=== PATIENT | male | born 1950 | race Caucasian/White ===

== ENCOUNTER 2023-01-12 06:25 | Emergency (ER) | payer MEDICARE ==
[2023-01-12 06:30] VITALS: TEMP 98
[2023-01-12] MEDS ORDERED: BACITRACIN OINT 1 EACH PACKET TOPICAL ONE (06:56)
--- NOTE | 2023-01-12 06:58 | ED ---
General Adult HPI - General Chief complaint: Wound/Laceration Stated complaint: Left Ankle Laceration Time Seen by Provider: 01/12/23 06:33 Source: patient, RN notes reviewed Mode of arrival: ambulatory Limitations: no limitations - History of Present Illness Initial comments: 72-year-old male presents emergency Department chief complaint of left leg inj ury. Patient states yesterday he was [place] the [place] football off when a ball washer fell striking his leg. Patient states that he has noted laceration he states he wrapped it up and noticed a little bit of blood this morning so he presents to the emergency room. Patient is up-to-date on his tetanus. Patient offers no complaints. - Related Data Allergies Allergy/AdvReac Type Severity Reaction Status Date / Time No Known Allergies Allergy Verified 01/12/23 06:30 Review of Systems ROS Statement: Those systems with pertinent positive or pertinent negative responses have been documented in the HPI. ROS Other: All systems not noted in ROS Statement are negative. Past Medical History Past Medical History: No Reported History Additional Past Surgical History / Comment(s): skin cancer removal Smoking Status: Never smoker Past Alcohol Use History: None Reported Past Drug Use History: None Reported General Exam General appearance: alert, in no apparent distress Head exam: Present: atraumatic, normocephalic, normal inspection Respiratory exam: Present: normal lung sounds bilaterally. Absent: respiratory distress, wheezes, rales, rhonchi, stridor Cardiovascular Exam: Present: regular rate, normal rhythm, normal heart sounds. Absent: systolic murmur, diastolic murmur, rubs, gallop, clicks Extremities exam: Present: other (Left lower leg anterior worrell there is 7 cm superficial laceration, skin tear no active bleeding neurovascular intact) Course Vital Signs 01/12/23 06:28 Temperature 98 F Pulse Rate 60 Respiratory 19 Rate Blood Pressure 140/75 O2 Sat by Pulse 98 Oximetry Medical Decision Making - Medical Decision Making Was pt. sent in by a medical professional or institution (, PA, BIODIESEL PLANT SUPERINTENDENT, urgent care, hospital, or shelter...) When possible be specific @ -No Did you speak to anyone other than the patient for history (EMS, parent, family, police, friend...)? What history was obtained from this source @ -No Did you review nursing and triage notes (agree or disagree)? Why? @ -I reviewed and agree with nursing and triage notes Were old charts reviewed (outside hosp., previous admission, EMS record, old EKG , old radiological studies, urgent care reports/EKG's, shelter records)? Report findings @ -No old charts were reviewed Differential Diagnosis (chest pain, altered mental status, abdominal pain women, abdominal pain men, vaginal bleeding, weakness, fever, dyspnea, syncope, headache, dizziness, GI bleed, back pain, seizure, CVA, palpatations, mental health, musculoskeletal)? @ -Laceration, skin tear EKG interpreted by me (3pts min.). @ -None X-rays interpreted by me (1pt min.). @ -None done CT interpreted by me (1pt min.). @ -None done U/S interpreted by me (1pt. min.). @ -None done What testing was considered but not performed or refused? (CT, X-rays, U/S, labs)? Why? @ -None What meds were considered but not given or refused? Why? @ -None Did you discuss the management of the patient with other professionals (professionals i.e. , PA, BIODIESEL PLANT SUPERINTENDENT, lab, RT, psych nurse, social worker delinquency prevention, business lawyer, teacher, v/stol landing signal officer, manager rn case)? Give summary @ -No Was smoking cessation discussed for >3mins.? @ -No Was critical care preformed (if so, how long)? @ -No Were there social determinants of health that impacted care today? How? (Homelessness, low income, unemployed, alcoholism, drug addiction, transportation, low edu. Level, literacy, decrease access to med. care, group home, rehab)? @ -No Was there de-escalation of care discussed even if they declined (Discuss DNR or withdrawal of care, Hospice)? DNR status @ -No What co-morbidities impacted this encounter? (DM, HTN, Smoking, COPD, CAD, Canc er, CVA, ARF, Chemo, Hep., AIDS, mental health diagnosis, sleep apnea, morbid obesity)? @ -None Was patient admitted / discharged? Hospital course, mention meds given and route, prescriptions, significant lab abnormalities, going to OR and other pertinent info. @ -Discharged patient has superficial laceration, skin tear was thoroughly cleaned, bacitracin applied will be discharged in stable condition patient was updated on tetanus. Undiagnosed new problem with uncertain prognosis? @ -No Drug Therapy requiring intensive monitoring for toxicity (Heparin, Nitro, Insulin, Cardizem)? @ -No Were any procedures done? @ -No Diagnosis/symptom? @ -Leg laceration, skin tear Acute, or Chronic, or Acute on Chronic? @ -Acute Uncomplicated (without systemic symptoms) or Complicated (systemic symptoms)? @ -Uncomplicated Side effects of treatment? @ -No Exacerbation, Progression, or Severe Exacerbation? @ -No Poses a threat to life or bodily function? How? (Chest pain, USA, [place], pneumonia, PE, COPD, DKA, ARF, appy, cholecystitis, CVA, Diverticulitis, Homicidal, Suicidal, threat to staff... and all critical care pts) @ -No Disposition Clinical Impression: Laceration of left leg, Skin tear Disposition: HOME SELF-CARE Condition: Stable Instructions (If sedation given, give patient instructions): Acute Wound Care (ED) Additional Instructions: Please return to the Emergency Department if symptoms worsen or any other concerns. Is patient prescribed a controlled substance at d/c from ED?: No Referrals: Nonstaff,Physician [Primary Care Provider] - 1-2 days Time of Disposition: 06:57
[2023-01-12 07:20] VITALS: BP 134/76; PULSE 62; RESP 16
== END 2023-01-12 07:24 | disposition home or self-care (01) ==
LOC: EC 06:25
DX: S81.812A Laceration without foreign body, left lower leg, initial encounter (principal); W20.8XXA Other cause of strike by thrown, projected or falling object, initial encounter; Y92.39 Other specified sports and athletic area as the place of occurrence of the external cause; Y93.61 Activity, american tackle football
CPT/HCPCS: 99282

== ENCOUNTER 2023-04-06 02:51 | Inpatient (IN) | payer MEDICARE ==
[2023-04-06 04:24] LABS: Basophils % (A) 0 %; Eosinophils # (A) 0.1 k/uL (0-0.7); Eosinophils % (A) 0 %; HCT 43.3 % (39.0-53.0); HGB 14.5 gm/dL (13.0-17.5); Lymphocytes # (A) 1.3 k/uL (1.0-4.8); Lymphocytes % (A) 11 %; MCH 31.2 pg (25.0-35.0); MCHC 33.5 g/dL (31.0-37.0); MCV 93.1 fL (80.0-100.0); Mean Platelet Volume 8.5; Monocytes % (A) 9 %; Neutrophils % (A) 79 %; Platelet Count 149 k/uL (150-450); RBC 4.65 m/uL (4.30-5.90); RDW 12.9 % (11.5-15.5); WBC 11.4 k/uL (3.8-10.6)
[2023-04-06] MEDS ORDERED: MORPHINE SULFATE 4 MG/ML SYRINGE IV STA (04:25)
[2023-04-06 04:32] LABS: ALT 25 U/L (4-49); AST 26 U/L (17-59); African American GFR (CKD) >90 (>60 ml/min/1.73 sqM); Albumin 4.1 g/dL (3.5-5.0); Alkaline Phosphatase 97 U/L (38-126); Amylase 50 U/L (30-110); Anion Gap 9 mmol/L; Blood Urea Nitrogen 15 mg/dL (9-20); Carbon Dioxide 27 mmol/L (22-30); Chloride 100 mmol/L (98-107); Glucose 98 mg/dL (74-99); Lipase 53 U/L (23-300); Non-African American GFR(CKD) 84 (>60 ml/min/1.73 sqM); Potassium 4.4 mmol/L (3.5-5.1); Sodium 136 mmol/L (137-145); Total Bilirubin 0.9 mg/dL (0.2-1.3)
--- NOTE | 2023-04-06 07:00 | CT ---
EXAMINATION TYPE: CT abdomen pelvis w con CT DLP: 788.4 mGycm, Automated exposure control for dose reduction was used. DATE OF EXAM: 04/06/2023 5:17 AM COMPARISON: none CLINICAL INDICATION:Male, 73 years old with history of RLQ pain; TECHNIQUE: Standard CT of the abdomen and pelvis following the administration of 100 cc of Isovue 3 00 IV contrast material. Coronal and sagittal reformats were performed. FINDINGS: LOWER CHEST: Posterior dependent subsegmental atelectasis is noted. ABDOMEN LIVER: Unremarkable GALLBLADDER AND BILE DUCTS: Unremarkable. PANCREAS: Unremarkable. SPLEEN: Unremarkable. ADRENAL GLANDS: Unremarkable. KIDNEYS AND URETERS: No evidence of hydronephrosis or renal calculus. The kidneys enhance symmetrical ly. Contrast is demonstrated within both collecting systems on the delayed phase. PELVIS BLADDER: Under distended but grossly unremarkable. REPRODUCTIVE: Coarse calcifications of the prostate gland are identified. ABDOMEN & PELVIS STOMACH AND BOWEL: Stomach and duodenum are unremarkable. No evidence of bowel obstruction. Dilated a ppendix measuring up to 9 mm with surrounding fat stranding and appendicolith at its tip measuring 5 mm. PERITONEUM: No evidence of pneumoperitoneum or free fluid. VASCULATURE: No evidence of aortic aneurysm. MUSCULOSKELETAL: No acute osseous abnormalities. Mild osteoarthritic changes of both hips. Degenerati ve changes of both SI joints. Mild multilevel degenerative disc disease of the visualized thoracolumb ar spine. LYMPH NODES: No gross evidence for lymphadenopathy. SOFT TISSUE/ABDOMINAL WALL: Unremarkable IMPRESSION: Uncomplicated acute appendicitis. Findings called to and discussed with Dr. Chou at 6:58 AM on 04/06/2023.
--- NOTE | 2023-04-06 07:09 | ED ---
Abdominal Pain HPI - General Source: RN notes reviewed, old records reviewed <Jorge Bearden - Last Filed: 04/06/23 08:21> - General Source: patient Mode of arrival: ambulatory Limitations: no limitations - History of Present Illness MD Complaint: abdominal pain -: hour(s) Location: RLQ Radiation: none Migration to: no migration Severity: moderate Quality: sharp Consistency: constant Improves With: nothing Worsens With: nothing Context: possible food poisoning Associated Symptoms: nausea, constipation <Zackary Chou - Last Filed: 04/06/23 08:35> - General Chief Complaint: Abdominal Pain Stated Complaint: Right side abdominal pain Time Seen by Provider: 04/06/23 03:50 - History of Present Illness Initial Comments: 's patient is 73-year-old man who complains of having right lower quadrant pain. He states that he has come on over the course of tonight. Patient states that its an aching pain. It does get worse with taking deep breath. He also states she may have a degree of constipation associated. He notes that prior to today he had been having some loose bowel movements for day and he also had possible fever yesterday. He thought he may have case of food poisoning but when the pain worsened over the course of tonight he felt he should be seen. (Zackary Chou) - Related Data Allergies Allergy/AdvReac Type Severity Reaction Status Date / Time No Known Allergies Allergy Verified 01/12/23 06:30 Review of Systems ROS Other: All systems not noted in ROS Statement are negative. <Jorge Bearden - Last Filed: 04/06/23 08:21> ROS Other: All systems not noted in ROS Statement are negative. Constitutional: Reports: fever. Denies: chills Respiratory: Denies: cough, dyspnea Cardiovascular: Denies: chest pain, palpitations Gastrointestinal: Reports: abdominal pain, diarrhea. Denies: nausea, vomiting Genitourinary: Denies: dysuria, frequency, hematuria Musculoskeletal: Denies: back pain Skin: Denies: rash Neurological: Denies: headache, weakness, numbness <Zackary Chou - Last Filed: 04/06/23 08:35> ROS Statement: Those systems with pertinent positive or pertinent negative responses have been documented in the HPI. Past Medical History Past Medical History: No Reported History Additional Past Surgical History / Comment(s): skin cancer removal Past Psychological History: No Psychological Hx Reported Smoking Status: Never smoker Past Alcohol Use History: None Reported Past Drug Use History: None Reported <Zackary Chou - Last Filed: 04/06/23 08:35> General Exam Limitations: no limitations General appearance: alert, in no apparent distress Head exam: Present: atraumatic, normocephalic Eye exam: Present: normal appearance. Absent: scleral icterus, conjunctival injection ENT exam: Present: normal oropharynx Neck exam: Present: normal inspection Respiratory exam: Present: normal lung sounds bilaterally. Absent: respiratory distress, wheezes, rales, rhonchi, stridor Cardiovascular Exam: Present: regular rate, normal rhythm, normal heart sounds. Absent: systolic murmur, diastolic murmur, rubs, gallop GI/Abdominal exam: Present: soft. Absent: distended, tenderness, guarding, rebound, rigid, mass, pulsatile mass, hernia Extremities exam: Present: normal inspection, normal capillary refill. Absent: pedal edema, calf tenderness Back exam: Present: normal inspection. Absent: CVA tenderness (R), CVA tenderness (L) Neurological exam: Present: alert Skin exam: Present: warm, dry, intact, normal color. Absent: rash <Zackary Chou - Last Filed: 04/06/23 08:35> Course Vital Signs 04/06/23 04/06/23 02:52 06:00 Temperature 98.2 F Pulse Rate 83 72 Respiratory 16 16 Rate Blood Pressure 142/80 120/60 O2 Sat by Pulse 97 96 Oximetry Medical Decision Making - Lab Data Result diagrams: 04/06/23 04:09 04/06/23 04:09 <Jorge Bearden - Last Filed: 04/06/23 08:21> - Lab Data Result diagrams: 04/06/23 04:09 04/06/23 04:09 <Zackary Chou - Last Filed: 04/06/23 08:35> - Medical Decision Making Was patient admitted / discharged? Hospital course, mention meds given and route, prescriptions, significant lab abnormalities, going to OR and other pert inent info. @ -Patient's CAT scan showed appendicitis. I spoke with Dr. Scott and Dr. Scott wanted to admit the patient was taken the patient to the OR later today. Undiagnosed new problem with uncertain prognosis? @ -No Drug Therapy requiring intensive monitoring for toxicity (Heparin, Nitro, Insulin, Cardizem)? @ -No Were any procedures done? @ -No Diagnosis/symptom? @ -Acute appendicitis Acute, or Chronic, or Acute on Chronic? @ -Acute Uncomplicated (without systemic symptoms) or Complicated (systemic symptoms)? @ -Complicated Side effects of treatment? @ -No Exacerbation, Progression, or Severe Exacerbation? @ -No Poses a threat to life or bodily function? How? (Chest pain, [place], [place], pneumonia, PE, COPD, DKA, ARF, appy, cholecystitis, CVA, Diverticulitis, Homicidal, Suicidal, threat to staff... and all critical care pts) @ -No (Jorge Bearden) Was pt. sent in by a medical professional or institution (, PA, HOUSE MOVER SUPERVISOR, urgent care, hospital, or [place] health [place] facility...) When possible be specific @ -[No] Did you speak to anyone other than the patient for history (EMS, parent, family, police, friend...)? What history was obtained from this source @ -[No] Did you review nursing and triage notes (agree or disagree)? Why? @ -[I reviewed and agree with nursing and triage notes] Were old charts reviewed (outside hosp., previous admission, EMS record, old EKG, old radiological studies, urgent care reports/EKG's, [place] health [facility] facility records)? Report findings @ -[No old charts were reviewed] Differential Diagnosis (chest pain, altered mental status, abdominal pain women, abdominal pain men, vaginal bleeding, weakness, fever, dyspnea, syncope, headache, dizziness, GI bleed, back pain, seizure, CVA, palpatations, mental health, musculoskeletal)? @ -[Differential Abdominal Pain Men: Appendicitis, cholecystitis, diverticulosis, ischemic bowel, pancreatitis, hepatitis, UTI, gastroenteritis, AAA, incarcerated hernia, bowel obstruction, constipation, inflammatory bowel, hepatitis, peptic ulcer disease, splenic infarction, perforated viscus, testicular torsion, this is not meant to be an all-inclusive list EKG interpreted by me (3pts min.). @ -[As above] X-rays interpreted by me (1pt min.). @ -[None done] CT interpreted by me (1pt min.). @ -[I interpreted as above U/S interpreted by me (1pt. min.). @ -[None done] What testing was considered but not performed or refused? (CT, X-rays, U/S, labs)? Why? @ -[None] What meds were considered but not given or refused? Why? @ -[None] Did you discuss the management of the patient with other professionals (prof mesa i.e. , PA, HOUSE MOVER SUPERVISOR, lab, RT, psych nurse, social media assistant, marine underwriter, teacher, customs officer, leather case finisher)? Give summary @ -[No] Was smoking cessation discussed for >3mins.? @ -[No] Was critical care preformed (if so, how long)? @ -[No] Were there social determinants of health that impacted care today? How? (Homelessness, low income, unemployed, alcoholism, drug addiction, trans portation, low edu. Level, literacy, decrease access to med. care, residential, rehab)? @ -[No] Was there de-escalation of care discussed even if they declined (Discuss DNR or withdrawal of care, Hospice)? DNR status @ -[No] What co-morbidities impacted this encounter? (DM, HTN, Smoking, COPD, CAD, Cancer, CVA, ARF, Chemo, Hep., AIDS, mental health diagnosis, sleep apnea, morbid obesity)? @ -[None] Was patient admitted / discharged? Hospital course, mention meds given and route, prescriptions, significant lab abnormalities, going to OR and other pertinent info. @ -[The patient is pending computed tomography scan at time of shift change (Zackary Chou) - Lab Data Lab Results 04/06/23 04/06/23 04/06/23 Range/Units 04:09 04:09 04:09 WBC 11.4 H (3.8-10.6) k/uL RBC 4.65 (4.30-5.90) m/uL Hgb 14.5 (13.0-17.5) gm/dL Hct 43.3 (39.0-53.0) % MCV 93.1 (80.0-100.0) fL MCH 31.2 (25.0-35.0) pg MCHC 33.5 (31.0-37.0) g/dL RDW 12.9 (11.5-15.5) % Plt Count 149 L (150-450) k/uL MPV 8.5 Neutrophils % 79 % Lymphocytes % 11 % Monocytes % 9 % Eosinophils % 0 % Basophils % 0 % Neutrophils # 9.0 H (1.3-7.7) k/uL Lymphocytes # 1.3 (1.0-4.8) k/uL Monocytes # 1.0 (0-1.0) k/uL Eosinophils # 0.1 (0-0.7) k/uL Basophils # 0.0 (0-0.2) k/uL Sodium 136 L (137-145) mmol/L Potassium 4.4 (3.5-5.1) mmol/L Chloride 100 (98-107) mmol/L Carbon Dioxide 27 (22-30) mmol/L Anion Gap 9 mmol/L BUN 15 (9-20) mg/dL Creatinine 0.90 (0.66-1.25) mg/dL Est GFR (CKD-EPI)AfAm >90 (>60 ml/min/1.73 sqM) Est GFR (CKD-EPI)NonAf 84 (>60 ml/min/1.73 sqM) Glucose 98 (74-99) mg/dL Plasma Lactic Acid Velasquez 0.8 (0.7-2.0) mmol/L Calcium 9.0 (8.4-10.2) mg/dL Total Bilirubin 0.9 (0.2-1.3) mg/dL AST 26 (17-59) U/L ALT 25 (4-49) U/L Alkaline Phosphatase 97 (38-126) U/L Total Protein 7.0 (6.3-8.2) g/dL Albumin 4.1 (3.5-5.0) g/dL Amylase 50 (30-110) U/L Lipase 53 (23-300) U/L Coronavirus (PCR) (Not Detectd) 04/06/23 Range/Units 04:09 WBC (3.8-10.6) k/uL RBC (4.30-5.90) m/uL Hgb (13.0-17.5) gm/dL Hct (39.0-53.0) % MCV (80.0-100.0) fL MCH (25.0-35.0) pg MCHC (31.0-37.0) g/dL RDW (11.5-15.5) % Plt Count (150-450) k/uL MPV Neutrophils % % Lymphocytes % % Monocytes % % Eosinophils % % Basophils % % Neutrophils # (1.3-7.7) k/uL Lymphocytes # (1.0-4.8) k/uL Monocytes # (0-1.0) k/uL Eosinophils # (0-0.7) k/uL Basophils # (0-0.2) k/uL Sodium (137-145) mmol/L Potassium (3.5-5.1) mmol/L Chloride (98-107) mmol/L Carbon Dioxide (22-30) mmol/L Anion Gap mmol/L BUN (9-20) mg/dL Creatinine (0.66-1.25) mg/dL Est GFR (CKD-EPI)AfAm (>60 ml/min/1.73 sqM) Est GFR (CKD-EPI)NonAf (>60 ml/min/1.73 sqM) Glucose (74-99) mg/dL Plasma Lactic Acid Velasquez (0.7-2.0) mmol/L Calcium (8.4-10.2) mg/dL Total Bilirubin (0.2-1.3) mg/dL AST (17-59) U/L ALT (4-49) U/L Alkaline Phosphatase (38-126) U/L Total Protein (6.3-8.2) g/dL Albumin (3.5-5.0) g/dL Amylase (30-110) U/L Lipase (23-300) U/L Coronavirus (PCR) Not Detected (Not Detectd) Disposition Time of Disposition: 08:28 <Jorge Bearden - Last Filed: 04/06/23 08:21> <Zackary Chou - Last Filed: 04/06/23 08:35> Clinical Impression: Acute appendicitis Disposition: ADMITTED IP TO THIS HOSP Referrals: None,Stated [Primary Care Provider] - 1-2 days
[2023-04-06] MEDS ORDERED: SODIUM CHLORIDE 0.9% 1,000 ML IV ONE (08:28)
[2023-04-06] MEDS ORDERED: MORPHINE SULFATE 4 MG/ML SYRINGE IVP STA (10:08)
[2023-04-06 10:36] LABS: Appearance,Urine Clear (Clear); Bilirubin,Urine Negative (Negative); Blood,Urine Negative (Negative); Color,Urine Light Yellow; Glucose,Urine (UA) Negative (Negative); Ketones,Urine 2+ (Negative); Leukocyte Esterase,Urine Negative (Negative); Nitrite,Urine Negative (Negative); PH, Urine 6.5 (5.0-8.0); Protein,Urine Negative (Negative); Urobilinogen,Urine <2.0 mg/dL (<2.0)
[2023-04-06 10:54] LABS: Specific Gravity,Urine >1.050 (1.001-1.035)
[2023-04-06] MEDS ORDERED: AMPICILLIN-SULBACTAM 3 GM in SODIUM CHLORIDE 0.9% 100 ML IVPB STA (12:45)
[2023-04-06] MEDS ORDERED: ONDANSETRON 4 MG/2 ML VIAL IVP PRN (12:47)
--- NOTE | 2023-04-06 12:50 | P.GSHP ---
History of Present Illness H&P Date: 04/06/23 CHIEF COMPLAINT: Right lower quadrant abdominal pain with appendicitis for over 2 days. HISTORY OF PRESENT ILLNESS: The patient is a previously healthy 73-year-old male who presents with 2 day history of epigastric to right lower quadrant abdominal pain with new fever that started yesterday. He routinely sees a primary care provider in [place]. He is generally healthy and does not take any medications. Additional diagnostic studies demonstrated appendicitis. He denies any previous surgeries. PAST MEDICAL HISTORY: See list and reviewed PAST SURGICAL HISTORY: See list and reviewed CURRENT MEDICATIONS: See list and reviewed ALLERGIES: See list and reviewed SOCIAL HISTORY: See list and reviewed FAMILY HISTORY: See list and reviewed REVIEW OF ORGAN SYSTEMS: CONSTITUTIONAL: Present fever, no chills. Denies recent weight loss. HEENT: Denies any trouble with vision, hearing or nosebleeds. No difficulty swallowing. LYMPHATIC: The patient denies any lumps and bumps around the neck. ENDOCRINE: Denies any thyroid disorders. Denies any blood sugar glucose intolerance. RESPIRATORY: Denies shortness of breath including chronic cough. CARDIOVASCULAR: Denies history of chest pain with exertion. GASTROINTESTINAL: Denies regurgitation of bile at night as well as intermittent nausea. No blood in stools. GENITOURINARY: Denies any blood in urine or increased urinary frequency. MUSCULOSKELETAL: Denies current joint arthritis. NEUROLOGIC: Denies any numbness or tingling along the distal extremities. No seizure disorders or headaches. PSYCHIATRIC: Denies any depression or suicidal ideation. HEMATOLOGIC: Denies any abnormal bleeding or bruising. PHYSICAL EXAMINATION: VITALS: Reviewed. GENERAL: Well-developed and in no acute distress. Pleasant. HEENT: No sclera icterus. Extraocular movements grossly intact. Moist buccal mucosa. Head is atraumatic, normocephalic. Hears conversational speech. No nasal drainage. NECK: Supple without lymphadenopathy. No JV distention. CHEST: Non-labored respirations and equal bilateral excursions. CARDIOVASCULAR: Regular rate and rhythm. Palpable 2+ radial pulses. ABDOMEN: Soft, tender at the right lower quadrant without guarding. MUSCULOSKELETAL: No clubbing, cyanosis or edema. NEUROLOGIC: No focal or lateralizing signs. PSYCH: Appropriate affect. Alert and oriented to person, place and time. SKIN: Well perfused. Good skin turgor. LABS: Reviewed. White blood cell count elevated over 11,000. STUDIES: CT of the abdomen and pelvis reviewed with findings consistent with appendicitis. ASSESSMENT: 1. Right lower quadrant pain. 2. Appendicitis 3. Leukocytosis. PLAN: 1. I have discussed benefits and risks of robotic appendectomy. 2. Bilateral SCDs. 3. Antibiotics intravenous to address leukocytosis 4. Will get EKG prior to surgery. Thank you very much for allowing me to participate in the care of your patient. Addendum: EKG demonstrates multiple abnormalities. I discussed with patient any prior cardiac assessment or stress test which he denies. Hold surgery due to moderate EKG changes with septal infarct. Will get cardiac risk assessment and ECHO. In the interim, treat with antibiotics. Patient is increased cardiac risk for a cardiac event pending additional cardiac assessment. Past Medical History Past Medical History: No Reported History Additional Past Surgical History / Comment(s): skin cancer removal Past Psychological History: No Psychological Hx Reported Smoking Status: Never smoker Past Alcohol Use History: None Reported Past Drug Use History: None Reported - Past Family History Father Family Medical History: Cancer Mother Family Medical History: No Reported History Medications and Allergies Home Medications Medication Instructions Recorded Confirmed Type No Known Home Medications 04/06/23 04/06/23 History Allergies Allergy/AdvReac Type Severity Reaction Status Date / Time No Known Allergies Allergy Verified 04/06/23 10:55 Surgical - Exam Vital Signs Temp Pulse Resp BP Pulse Ox 98.2 F 83 16 142/80 97 04/06/23 02:52 04/06/23 02:52 04/06/23 02:52 04/06/23 02:52 04/06/23 02:52 Results - Labs 04/09/23 06:26 04/06/23 04:09 Abnormal Lab Results - Last 24 Hours (Table) 04/06/23 04/06/23 04/06/23 Range/Units 04:09 04:09 04:09 WBC 11.4 H (3.8-10.6) k/uL Plt Count 149 L (150-450) k/uL Neutrophils # 9.0 H (1.3-7.7) k/uL Sodium 136 L (137-145) mmol/L Ur Specific [place] >1.050 H (1.001-1.035) Urine Ketones 2+ H (Negative) Diabetes panel 04/06/23 Range/Units 04:09 Sodium 136 L (137-145) mmol/L Potassium 4.4 (3.5-5.1) mmol/L Chloride 100 (98-107) mmol/L Carbon Dioxide 27 (22-30) mmol/L BUN 15 (9-20) mg/dL Creatinine 0.90 (0.66-1.25) mg/dL Glucose 98 (74-99) mg/dL Calcium 9.0 (8.4-10.2) mg/dL AST 26 (17-59) U/L ALT 25 (4-49) U/L Alkaline Phosphatase 97 (38-126) U/L Total Protein 7.0 (6.3-8.2) g/dL Albumin 4.1 (3.5-5.0) g/dL Calcium panel 04/06/23 Range/Units 04:09 Calcium 9.0 (8.4-10.2) mg/dL Albumin 4.1 (3.5-5.0) g/dL Pituitary panel 04/06/23 Range/Units 04:09 Sodium 136 L (137-145) mmol/L Potassium 4.4 (3.5-5.1) mmol/L Chloride 100 (98-107) mmol/L Carbon Dioxide 27 (22-30) mmol/L BUN 15 (9-20) mg/dL Creatinine 0.90 (0.66-1.25) mg/dL Glucose 98 (74-99) mg/dL Calcium 9.0 (8.4-10.2) mg/dL Adrenal panel 04/06/23 Range/Units 04:09 Sodium 136 L (137-145) mmol/L Potassium 4.4 (3.5-5.1) mmol/L Chloride 100 (98-107) mmol/L Carbon Dioxide 27 (22-30) mmol/L BUN 15 (9-20) mg/dL Creatinine 0.90 (0.66-1.25) mg/dL Glucose 98 (74-99) mg/dL Calcium 9.0 (8.4-10.2) mg/dL Total Bilirubin 0.9 (0.2-1.3) mg/dL AST 26 (17-59) U/L ALT 25 (4-49) U/L Alkaline Phosphatase 97 (38-126) U/L Total Protein 7.0 (6.3-8.2) g/dL Albumin 4.1 (3.5-5.0) g/dL
[2023-04-06] MEDS: KETOROLAC 15 MG/ML 1 ML VIAL IVP SCH ×2 (14:38→18:19)
[2023-04-06] MEDS: metroNIDAZOLE-NS PMX 500 MG in SALINE 1 100ML.BAG IVPB SCH ×2 (14:39→18:47)
[2023-04-06] MEDS: ACETAMINOPHEN IV (For NPO) 1,000 MG in EMPTY BAG 1 BAG IVPB SCH ×2 (14:39→18:18)
[2023-04-06] MEDS: AMPICILLIN-SULBACTAM 3 GM in SODIUM CHLORIDE 0.9% 100 ML IVPB SCH (20:05)
[2023-04-07] MEDS: ACETAMINOPHEN IV (For NPO) 1,000 MG in EMPTY BAG 1 BAG IVPB SCH ×3 (00:04→23:49)
[2023-04-07] MEDS: KETOROLAC 15 MG/ML 1 ML VIAL IVP SCH ×4 (00:29→17:20)
[2023-04-07] MEDS: metroNIDAZOLE-NS PMX 500 MG in SALINE 1 100ML.BAG IVPB SCH ×5 (00:30→23:52)
[2023-04-07] MEDS: AMPICILLIN-SULBACTAM 3 GM in SODIUM CHLORIDE 0.9% 100 ML IVPB SCH ×3 (04:54→22:44)
[2023-04-07] MEDS ORDERED: SODIUM CHLORIDE 0.9% 2,000 ML IV ONE (06:43)
[2023-04-07] MEDS ORDERED: HEPARIN SODIUM,PORCINE/PF 5,000 UNIT/0.5 ML SYRINGE SQ PRN (07:00)
--- NOTE | 2023-04-07 10:21 | CA ---
Transthoracic Echo Report Name: Esteban Neil Age: 73 Gender: M : 1950 Exam Date: 04/07/2023 09:04 Exam Location: [facility] Ht (in): 70 Wt (lb): 170 Ordering Physician: Suzanne Solorio MD Attending/Referring Phys: Lyndsey HALLMAN Director Of Therapy Services Latesha Meija RDCS Procedure CPT: Indications: Abnormal EKG for septal infarct Cardiac Hx: Technical Quality: Good Contrast 1: Total Dose (mL): Contrast 2: Total Dose (mL): MEASUREMENTS (Male / Female) Normal Values 2D ECHO LV Diastolic Diameter PLAX 4.7 cm 4.2 - 5.9 / 3.9 - 5.3 cm LV Systolic Diameter PLAX 2.9 cm IVS Diastolic Thickness 1.0 cm 0.6 - 1.0 / 0.6 - 0.9 cm LVPW Diastolic Thickness 0.9 cm 0.6 - 1.0 / 0.6 - 0.9 cm LV Relative Wall Thickness 0.4 RV Internal Dim ED PLAX 2.9 cm LA Systolic Diameter LX 3.9 cm 3.0 - 4.0 / 2.7 - 3.8 cm LV Diastolic Volume MOD 4C 57.2 cm??? LV Systolic Volume MOD 4C 21.9 cm??? LV Ejection Fraction MOD 4C 61.8 % LV Cardiac Index MOD 4C 848.7 cm???/min???m??? LV Diastolic Length 4C 7.9 cm LV Systolic Length 4C 6.1 cm LV Diastolic Volume MOD 2C 67.0 cm??? LV Systolic Volume MOD 2C 27.4 cm??? LV Ejection Fraction MOD 2C 59.1 % LV Cardiac Index MOD 2C 950.8 cm???/min???m??? LV Diastolic Length 2C 8.1 cm LV Systolic Length 2C 7.4 cm LA Volume 60.9 cm??? 18 - 58 / 22 - 52 cm??? LA Volume Index 31.1 cm???/m??? 16 - 28 cm???/m??? M-MODE Aortic Root Diameter MM 2.9 cm MV E Point Septal Separation 0.2 cm AV Cusp Separation MM 2.2 cm DOPPLER AV Peak Velocity 152.5 cm/s AV Peak Gradient 9.3 mmHg MV Area PHT 3.4 cm??? Mitral E Point Velocity 95.5 cm/s Mitral A Point Velocity 67.5 cm/s Mitral E to A Ratio 1.4 MV Deceleration Time 221.7 ms MV E' Velocity 9.3 cm/s Mitral E to MV E' Ratio 10.3 TR Peak Velocity 239.8 cm/s TR Peak Gradient 23.0 mmHg Right Ventricular Systolic Press 27.5 mmHg FINDINGS Left Ventricle Left ventricular ejection fraction is estimated at 55-60 %. Left ventricular cavity size normal. Right Ventricle Normal right ventricular size. Right ventricular systolic pressure within normal limits. Right Atrium Normal right atrial size. Left Atrium Mildly increased left atrial volume. Mildly increased left atrial area. Mitral Valve Structurally normal mitral valve. Trace to mild mitral regurgitation. Aortic Valve Trileaflet aortic valve. No aortic valve stenosis or regurgitation. Tricuspid Valve Structurally normal tricuspid valve. Mild tricuspid regurgitation. Pulmonic Valve Structurally normal pulmonic valve. No pulmonic regurgitation. Pericardium No pericardial effusion. Aorta Normal size aortic root and proximal ascending aorta. CONCLUSIONS Normal LV size and systolic function. No significant abnormality in the Doppler exam. No pericardial effusion. No pulmonary hypertension Previewed by: Dr. Jackeline Serrano MD (Electronically Signed) Final Date: 07 April 2023 10:21
--- NOTE | 2023-04-07 10:30 | CONS ---
CONSULTATION HISTORY OF PRESENT ILLNESS: This is a 73-year-old gentleman who presented to the hospital with episode of abdominal discomfort and was evaluated by Dr. Solorio, had an abdominal and pelvis CT, was found to have acute appendicitis and is being considered for surgery. I was asked to see him from a preoperative standpoint. He had right lower quadrant pain and tenderness. White count is modestly elevated. The patient at the time of my evaluation is asymptomatic. He lives in [place] more than 6 months and comes here in the summer. He has no history of any diabetes, hypertension, or any other major medical problems. No major surgeries in the past. He does not take any prescription medicines. He does a 30 minutes of elliptical daily and is quite remarkably active. No symptoms of chest pain or shortness of breath. Never had a stress test. Based on his clinical history, the patient's functional capacity is excellent and I do not see any contraindication for the proposed appendectomy to be performed. At the time of my evaluation, he is resting comfortably without symptoms. EKG revealed sinus mechanism, leftward axis, LVH by voltage criteria, no acute changes. PAST MEDICAL HISTORY: Unremarkable for any major medical or surgical issues. MEDICATIONS AT HOME: None. PHYSICAL EXAMINATION: VITAL SIGNS: Blood pressure is 110/70, pulse rate is 70 per minute and regular. HEENT: Unremarkable. Fundus was not examined by me. NECK: Supple. No JVD. I do not hear a carotid bruit. There is no thyromegaly. HEART: Reveals S1, S2 heard normally. No rub, murmur or gallop. LUNGS: Clear. ABDOMEN: Soft. There is mild right lower quadrant tenderness. Bowel sounds are audible. MUSCULOSKELETAL: Lower extremities reveal palpable pulses. No edema. CENTRAL NERVOUS SYSTEM: Normal. IMPRESSION: 1. Acute appendicitis, is going for surgery. 2. No significant medical history. 3. No contraindication for proposed appendectomy. RECOMMENDATIONS: I would recommend cautious hydration and optimal BP control perioperatively. No contraindication. The patient is at an average risk. We will continue IV fluids at this time. The patient can proceed with surgery later on today. Thank you very much for the consult. MMODL / IJN: [id number] /
[2023-04-07] MEDS: SODIUM CHLORIDE 0.9% 1,000 ML IV SCH ×2 (11:01→18:34)
[2023-04-07 15:51] LABS: Basophils % (A) 0 %; Eosinophils # (A) 0.1 k/uL (0-0.7); Eosinophils % (A) 1 %; HGB 13.3 gm/dL (13.0-17.5); Lymphocytes % (A) 9 %; MCH 30.7 pg (25.0-35.0); MCHC 32.4 g/dL (31.0-37.0); MCV 94.7 fL (80.0-100.0); Mean Platelet Volume 8.6; Monocytes # (A) 0.7 k/uL (0-1.0); Monocytes % (A) 6 %; Neutrophils # (A) 10.1 k/uL (1.3-7.7); Neutrophils % (A) 84 %; Platelet Count 124 k/uL (150-450); RBC 4.33 m/uL (4.30-5.90); RDW 12.9 % (11.5-15.5)
[2023-04-07] MEDS ORDERED: HEPARIN SODIUM,PORCINE 5,000 UNIT/ML 1 ML VIAL SQ ONE (19:15)
[2023-04-07] MEDS ORDERED: ONDANSETRON 4 MG/2 ML VIAL IVP ONE (19:15)
[2023-04-07] MEDS ORDERED: DEXAMETHASONE SOD PHOSPHATE 4 MG/ML 1 ML VIAL IVP ONE (19:17)
[2023-04-07] MEDS ORDERED: LACTATED RINGERS 1,000 ML IV ONE (19:55)
[2023-04-07] MEDS ORDERED: ONDANSETRON 4 MG/2 ML VIAL ONE (20:31)
[2023-04-07] MEDS ORDERED: PROPOFOL 10 MG/ML 20 ML VIAL IV ONE (20:31)
[2023-04-07] MEDS ORDERED: NEOSTIGMINE 1 MG/ML 10 ML VIAL ONE (20:31)
[2023-04-07] MEDS ORDERED: fentaNYL (PF) 50 MCG/ML 2 ML AMP ONE (20:31)
[2023-04-07] MEDS ORDERED: GLYCOPYRROLATE 0.2 MG/ML 2 ML VIAL ONE (20:31)
[2023-04-07] MEDS ORDERED: LIDOCAINE 1% INJ 10MG/ML (20 ML MDV) ONE (20:31)
[2023-04-07] MEDS ORDERED: DEXAMETHASONE SOD PHOSPHATE 4 MG/ML 1 ML VIAL ONE (20:31)
[2023-04-07] MEDS ORDERED: ROCURONIUM 10 MG/ML (5 ML VIAL) IV ONE (20:31)
[2023-04-07] MEDS ORDERED: MIDAZOLAM 2 MG/2 ML VIAL ONE (20:31)
[2023-04-07] MEDS ORDERED: KETOROLAC 30 MG/ML 1 ML VIAL ONE (20:31)
[2023-04-07] MEDS ORDERED: LIDOCAINE 2%-EPI 1:100,000 20 ML VIAL SQ ONE (20:51)
[2023-04-07] MEDS ORDERED: NALOXONE 0.4 MG/ML 1 ML VIAL IV PRN (23:10)
[2023-04-07] MEDS ORDERED: METOCLOPRAMIDE 5 MG/ML 2 ML VIAL IVP PRN (23:11)
[2023-04-07] MEDS ORDERED: HYDROmorphone 1 MG/ML 1 ML SYRINGE IVP PRN (23:11)
[2023-04-07] MEDS ORDERED: D5-0.45% NACL WITH KCL 20MEQ/L 1,000 ML IV SCH (23:15)
[2023-04-08] MEDS ORDERED: ACETAMINOPHEN IV (For NPO) 1,000 MG in EMPTY BAG 1 BAG IVPB SCH
[2023-04-08] MEDS: SODIUM CHLORIDE 0.9% 1,000 ML IV SCH ×2 (00:24→12:19)
[2023-04-08] MEDS: LACTATED RINGERS 1,000 ML IV SCH ×2 (00:47→02:35)
[2023-04-08] MEDS: KETOROLAC 15 MG/ML 1 ML VIAL IVP SCH ×4 (02:33→17:48)
[2023-04-08] MEDS: AMPICILLIN-SULBACTAM 3 GM in SODIUM CHLORIDE 0.9% 100 ML IVPB SCH ×3 (05:35→20:43)
[2023-04-08] MEDS: ACETAMINOPHEN IV (For NPO) 1,000 MG in EMPTY BAG 1 BAG IVPB SCH ×3 (06:08→17:33)
[2023-04-08] MEDS: metroNIDAZOLE-NS PMX 500 MG in SALINE 1 100ML.BAG IVPB SCH ×3 (06:13→17:55)
[2023-04-08] MEDS: DOCUSATE 100 MG CAP PO SCH ×2 (08:21→20:42)
[2023-04-08] MEDS: HEPARIN SODIUM,PORCINE 5,000 UNIT/ML 1 ML VIAL SQ SCH ×2 (08:22→20:43)
[2023-04-08] MEDS: PANTOPRAZOLE 40 MG/10 ML VIAL IV SCH (08:54)
--- NOTE | 2023-04-08 10:39 | PN ---
PROGRESS NOTE HISTORY: Mr. Neil is a gentleman, who underwent an appendectomy yesterday. He has no significant comorbid conditions. He is doing well postprocedure. PHYSICAL EXAMINATION: VITALS: Stable. NECK: No JVD. HEART: S1, S2 heard normally. LUNGS: Clear. ABDOMEN: Soft. LOWER EXTREMITIES: Reveal palpable pulses. CENTRAL NERVOUS SYSTEM: Normal. Stable cardiac-wray. No further intervention. He can be discharged whenever okay by the surgeon. I will see him as needed. MMODL / IJN: [id number] /
[2023-04-08 10:52] LABS: Basophils # (A) 0.01 X 10*3/uL (0.00-0.10); Basophils % (A) 0.1 %; Eosinophils # (A) 0 X 10*3/uL (0.04-0.35); Eosinophils % (A) 0 %; HCT 39.2 % (39.6-50.0); HGB 12.8 g/dL (13.0-17.0); Lymphocytes # (A) 0.42 X 10*3/uL (0.90-5.00); Lymphocytes % (A) 3.5 %; MCH 30.8 pg (27.0-32.0); MCHC 32.7 g/dL (32.0-37.0); MCV 94.5 FL (80.0-97.0); Mean Platelet Volume 12.3 FL (9.5-12.2); Monocytes # (A) 0.21 X 10*3/uL (0.20-1.00); Monocytes % (A) 1.8 %; NRBC Per 100 WBC 0 X 10*3/uL (0.00-0.01); Neutrophils # (A) 11.17 X 10*3/uL (1.80-7.70); Neutrophils % (A) 94.1 %; Platelet Count 129 X 10*3/uL (140-440); RBC 4.15 X 10*6/uL (4.40-5.60); RDW 13.4 % (11.5-14.5); WBC 11.87 X 10*3/uL (4.50-10.00)
--- NOTE | 2023-04-08 11:49 | P.PN ---
Subjective Progress Note Date: 04/08/23 CHIEF COMPLAINT: Ruptured appendicitis HISTORY OF PRESENT ILLNESS: Patient postop day #1 status post appendectomy. Patient is sleeping but comfortably. His pain is controlled. He has been ambulating. Afebrile. WBC coming down from 12 to 11.87 HGB 12.8 plt 129 PHYSICAL EXAM: VITAL SIGNS: Reviewed GENERAL: Well-developed in no acute distress. HEENT: No sclera icterus. Extraocular movements grossly intact. Moist buccal mucosa. Head is atraumatic, normocephalic. Hears conversational speech. No nasal drainage. NECK: Supple without lymphadenopathy. CHEST: Non-labored respirations and equal bilateral excursions. CARDIOVASCULAR: Palpable 2+ radial pulses. ABDOMEN: Soft. Nondistended. MUSCULOSKELETAL: No clubbing or cyanosis. NEUROLOGIC: No focal or lateralizing signs. Cranial nerves II through XII grossly intact. PSYCH: Appropriate affect. Alert and oriented to person, place and time. SKIN: Well perfused. Good skin turgor. ASSESSMENT: 1. Acute ruptured appendicitis status post robotic-assisted laparoscopic appendectomy PLAN: -Patient will be discharged on white count has normalized -Continue IV antibiotics -Pain management -Continue regular diet -Repeat CBC in a.m. -Encourage patient to ambulate -DVT prophylaxis subcu heparin Physician Sales Agent P[employer] Service note has been reviewed by physician. Signing provider agrees with the documented findings, assessment, and plan of care. Objective - Vital Signs Vital signs: Vital Signs Temp 97.6 F 04/08/23 07:56 Pulse 53 L 04/08/23 07:56 Resp 16 04/08/23 07:56 BP 99/56 04/08/23 07:56 Pulse Ox 94 L 04/08/23 07:56 FiO2 Intake & Output 04/07/23 04/08/23 04/08/23 18:59 06:59 18:59 Intake Total 950 240 Output Total 10 Balance 940 240 Weight 77.111 kg Intake: IV 950 Oral 240 Output: Estimated Blood Loss 10 Other: Voiding Method Toilet Toilet Urinal Urinal # Voids 2 1 - Labs CBC & Chem 7: 04/08/23 06:54 04/06/23 04:09 Labs: Abnormal Lab Results - Last 24 Hours (Table) 04/07/23 04/08/23 Range/Units 15:12 06:54 WBC 12.0 H 11.87 H (3.8-10.6) k/uL RBC 4.15 L (4.40-5.60) X 10*6/uL Hgb 12.8 L (13.0-17.0) g/dL Hct 39.2 L (39.6-50.0) % Plt Count 124 L 129 L (150-450) k/uL MPV 12.3 H (9.5-12.2) FL Neutrophils # 10.1 H 11.17 H (1.3-7.7) k/uL Lymphocytes # 0.42 L (0.90-5.00) X 10*3/uL Eosinophils # 0 L (0.04-0.35) X 10*3/uL
[2023-04-09] MEDS: SODIUM CHLORIDE 0.9% 1,000 ML IV SCH ×3 (00:41→18:20)
[2023-04-09] MEDS: KETOROLAC 15 MG/ML 1 ML VIAL IVP SCH ×6 (00:42→23:33)
[2023-04-09] MEDS: metroNIDAZOLE-NS PMX 500 MG in SALINE 1 100ML.BAG IVPB SCH ×5 (00:42→23:31)
[2023-04-09] MEDS: AMPICILLIN-SULBACTAM 3 GM in SODIUM CHLORIDE 0.9% 100 ML IVPB SCH ×2 (05:30→13:58)
[2023-04-09] MEDS: PANTOPRAZOLE 40 MG/10 ML VIAL IV SCH (08:58)
[2023-04-09] MEDS: DOCUSATE 100 MG CAP PO SCH ×2 (08:58→20:00)
[2023-04-09] MEDS: HEPARIN SODIUM,PORCINE 5,000 UNIT/ML 1 ML VIAL SQ SCH ×2 (08:58→20:00)
[2023-04-09 13:44] LABS: Basophils # (A) 0.01 X 10*3/uL (0.00-0.10); Basophils % (A) 0.1 %; Eosinophils # (A) 0 X 10*3/uL (0.04-0.35); Eosinophils % (A) 0 %; HCT 34.4 % (39.6-50.0); HGB 11.3 g/dL (13.0-17.0); Lymphocytes # (A) 1.04 X 10*3/uL (0.90-5.00); Lymphocytes % (A) 8.2 %; MCH 30.2 pg (27.0-32.0); MCHC 32.8 g/dL (32.0-37.0); Monocytes % (A) 7.1 %; NRBC Per 100 WBC 0 X 10*3/uL (0.00-0.01); Neutrophils # (A) 10.63 X 10*3/uL (1.80-7.70); Neutrophils % (A) 84.3 %; Platelet Count 159 X 10*3/uL (140-440); RBC 3.74 X 10*6/uL (4.40-5.60); RDW 13.6 % (11.5-14.5); WBC 12.62 X 10*3/uL (4.50-10.00)
--- NOTE | 2023-04-09 14:08 | P.PN ---
Subjective Progress Note Date: 04/09/23 CHIEF COMPLAINT: Ruptured appendicitis HISTORY OF PRESENT ILLNESS: Patient postop day #2 status post appendectomy. Patient reports his pain is controlled. He is tolerating diet. He has been up and ambulating. Unfortunately his white count did go up from 11.87-12.62. Culture growing gram-negative bacilli PHYSICAL EXAM: VITAL SIGNS: Reviewed GENERAL: Well-developed in no acute distress. HEENT: No sclera icterus. Extraocular movements grossly intact. Moist buccal mucosa. Head is atraumatic, normocephalic. Hears conversational speech. No nasal drainage. NECK: Supple without lymphadenopathy. CHEST: Non-labored respirations and equal bilateral excursions. CARDIOVASCULAR: Palpable 2+ radial pulses. ABDOMEN: Soft. Nondistended. MUSCULOSKELETAL: No clubbing or cyanosis. NEUROLOGIC: No focal or lateralizing signs. Cranial nerves II through XII grossly intact. PSYCH: Appropriate affect. Alert and oriented to person, place and time. SKIN: Well perfused. Good skin turgor. ASSESSMENT: 1. Acute ruptured appendicitis status post robotic-assisted laparoscopic appendectomy PLAN: -Due to worsening leukocytosis we will consult infectious disease -Continue IV antibiotics -Pain management -Continue regular diet -Repeat CBC in a.m. -Encourage patient to ambulate -DVT prophylaxis subcu heparin Physician Ui Application Developer note has been reviewed by physician. Signing provider agrees with the documented findings, assessment, and plan of care. Objective - Vital Signs Vital signs: Vital Signs Temp 97.6 F 04/09/23 07:33 Pulse 53 L 04/09/23 07:33 Resp 18 04/09/23 07:33 BP 116/65 04/09/23 07:33 Pulse Ox 95 04/09/23 07:33 FiO2 Intake & Output 04/08/23 04/09/23 04/09/23 18:59 06:59 18:59 Intake Total 480 240 Balance 480 240 Intake: Oral 480 240 Other: Voiding Method Toilet Urinal # Voids 1 1 - Labs CBC & Chem 7: 04/09/23 06:26 04/06/23 04:09 Labs: Abnormal Lab Results - Last 24 Hours (Table) 04/09/23 Range/Units 06:26 WBC 12.62 H (4.50-10.00) X 10*3/uL RBC 3.74 L (4.40-5.60) X 10*6/uL Hgb 11.3 L (13.0-17.0) g/dL Hct 34.4 L (39.6-50.0) % MPV 13.0 H (9.5-12.2) FL Neutrophils # 10.63 H (1.80-7.70) X 10*3/uL Eosinophils # 0 L (0.04-0.35) X 10*3/uL Microbiology - Last 24 Hours (Table) 04/07/23 21:45 Gram Stain - Preliminary Appendix Wound Culture - Preliminary Gram Neg Bacilli
[2023-04-09] MEDS: PIPERACILLIN-TAZOBACTAM 3.375 GM in SODIUM CHLORIDE 0.9% 100 ML IVPB SCH ×2 (16:44→23:32)
--- NOTE | 2023-04-09 19:41 | P.OP ---
Date of Procedure: 04/07/23 Description of Procedure: Perforated localized appendiciits with right upper qaudrant retocele. SURGEON: ARNOLDO PORRAS MD Preoperative Diagnosis: 1. Acute appendicitis 2. 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 Acute appendicitis, retrocecal with rupture, localized peritonitis 2. 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 Robotic-assisted daVinci Xi laparoscopic appendectomy Anesthesia: GETA, local Estimated Blood Loss (ml): 10 Pathology: other (appendix) Condition: stable Disposition: floor Operative Findings: 1. Acute appendicitis, retrocecal with rupture at tip, localized peritonitis 2. Appendix coursing along the right upper quadrant towards the gallbladder adding complexity to the case INDICATIONS: The patient is a 73-year-old male who presents with acute appendicitis. Cardiac risk assessment obtained for normal EKG. Benefits and risks, including infection, open surgery, and bleeding for additional surgery was discussed at length. Informed consent was obtained. All questions of the patient were answered. DESCRIPTION: The patient was transferred to the operating room and placed in supine position. The patient had previously voided. The abdomen was then prepped and draped in standard sterile fashion as Ioban was placed along the abdomen to minimize any contamination of skin floor. After a timeout protocol was performed, attention was then brought to the left upper quadrant whereby a 0 degree 5 mm laparoscopic trocar entry was performed. The abdominal cavity was entered and insufflated to 12 mmHg pressure, which was tolerated well. Diagnostic laparoscopy demonstrated no injury to bowel, viscera or mesentery. Next a robotic 8-mm trocar was placed along the left lower quadrant, 10-cm lateral to the midline. A 12 mm port was placed along the left upper quadrant an d another 8-mm port left lateral abdominal wall. Ports were placed 8 cm apart from each other including 15-20 cm away from the target anatomy of the right pelvis. The patient was then placed in Trendelenburg position, at least 14 down and right side up at least 7. The robotic da Sergey XI system was primed and docked from the left side of the patient. Using atraumatic graspers and vessel sealer, the robotic system was docked and primed as described. Instruments were interchanged by the grants assistant including graspers, robotic stapler and vessel sealer. Next, attention was brought to identify the cecum. A systematic view within the abdominal cavity was started with the small bowel which was unremarkable. The base of the cecum was unremarkable. The appendix was retrocecal coursing towards right upper quadrant behind the ascending colon with additional dissection required. The appendix had ruptured at the tip with localized peritonitis cleared using sponges. Dense inflammatory response and surrounding tissue sutures required additional dissection. Blue 45 mm robotic staple loads were fired along the base of the appendix. The staple line was hemostatic. Hemostasis was checked prior to undocking the robot. The robot was undocked. I re-scrubbed into the case. The specimen was removed from the abdominal cavity with an Endo Catch bag through the 12 mm trocar at the left upper quadrant. All instruments and pneumoperitoneum were evacuated from the abdominal cavity. Local anesthetic was infiltrated to all wounds for postop analgesia. All incisions were also cleansed with diluted hydrogen peroxide. The incisions were closed with 4-0 Monocryl. Exofin glue was applied to the rest of the skin incisions. The patient had tolerated the procedure well. The patient was extubated successfully. The patient was transferred to the postanesthesia care unit in stable condition.
[2023-04-10] MEDS: SODIUM CHLORIDE 0.9% 1,000 ML IV SCH ×3 (04:02→23:43)
[2023-04-10] MEDS: KETOROLAC 15 MG/ML 1 ML VIAL IVP SCH ×4 (05:32→23:44)
[2023-04-10] MEDS: metroNIDAZOLE-NS PMX 500 MG in SALINE 1 100ML.BAG IVPB SCH (05:32)
--- NOTE | 2023-04-10 05:34 | P.CONS ---
History of Present Illness - Reason for Consult Consult date: 04/09/23 Leukocytosis Requesting physician: Jessica Bonner - Chief Complaint Abdominal pain x few days - History of Present Illness Patient is a 73-year-old male with a past medical history significant for skin cancer and former smoker presenting to the hospital 3 days ago for evaluation of right lower quadrant abdominal pain patient symptoms started the night he presented to the hospital was complaining of pain to be sharp moderate to severe intensity without any radiation no nausea no vomiting some constipation and a fever at home with the symptoms patient was evaluated on presentation to the hospital he did have a low-grade fever of 99.8 degrees following right patient did have vital 11.4 which is up from 12.6 to kidney function was normal liver enzymes are normal urine has been negative COVID testing was negative patient did have a CT abdominal pelvis uncompleted acute appendicitis patient was admitted to surgery patient was taken to the OR 04/07/2023 status post robotic assisted laparoscopic appendectomy with findings of acute appendicitis retrocecal with rupture at the tip and localized peritonitis culture has been obtained patient was noticed to have worsening of the white count that has prompted this infectious disease consultation patient has been treated with IV Unasyn and Flagyl Review of Systems Positive point and negatives has been mentioned in the HPI, complete review of systems was performed and all other systems are negative Past Medical History Past Medical History: No Reported History History of Any Multi-Drug Resistant Organisms: None Reported Additional Past Surgical History / Comment(s): skin cancer removal Past Anesthesia/Blood Transfusion Reactions: No Reported Reaction Past Psychological History: No Psychological Hx Reported Smoking Status: Former smoker Past Alcohol Use History: None Reported Past Drug Use History: None Reported - Past Family History Father Family Medical History: Cancer Mother Family Medical History: No Reported History Medications and Allergies Home Medications Medication Instructions Recorded Confirmed Type Acetaminophen Tab [Tylenol] 1,000 mg PO Q6HR PRN #30 tablet 04/10/23 Rx Ibuprofen [Motrin] 600 mg PO Q8HR PRN #30 tab 04/10/23 Rx Allergies Allergy/AdvReac Type Severity Reaction Status Date / Time No Known Allergies Allergy Verified 04/06/23 10:55 Physical Exam Vitals: Vital Signs Temp Pulse Resp BP Pulse Ox 04/09/23 07:33 97.6 F 53 L 18 116/65 95 04/09/23 01:14 97.6 F 56 L 17 101/55 95 04/08/23 19:36 97.7 F 57 L 18 111/63 95 04/08/23 18:55 98.0 F 62 16 109/58 96 Intake and Output 04/09/23 04/09/23 04/09/23 06:59 14:59 22:59 Intake Total 240 Balance 240 Intake: Oral 240 Other: # Voids 1 GENERAL DESCRIPTION: Elderly male lying in bed, no distress. No tachypnea or accessory muscle of respiration use. HEENT: Shows Pallor , no scleral icterus. Oral mucous membrane is dry. No pharyngeal erythema or thrush NECK: Trachea central, no thyromegaly. LUNGS: Unlabored breathing. Clear to auscultation anteriorly. No wheeze or crackle. HEART: S1, S2, regular rate and rhythm. No loud murmur ABDOMEN: Soft, mild right lower abdominal tenderness EXTREMITIES: No edema of feet. SKIN: No rash, no masses palpable. NEUROLOGICAL: The patient is awake, alert, oriented x3, mood and affect normal. Results CBC & Chem 7: 04/10/23 06:24 04/06/23 04:09 Labs: Abnormal Lab Results - Last 24 Hours (Table) 04/09/23 Range/Units 06:26 WBC 12.62 H (4.50-10.00) X 10*3/uL RBC 3.74 L (4.40-5.60) X 10*6/uL Hgb 11.3 L (13.0-17.0) g/dL Hct 34.4 L (39.6-50.0) % MPV 13.0 H (9.5-12.2) FL Neutrophils # 10.63 H (1.80-7.70) X 10*3/uL Eosinophils # 0 L (0.04-0.35) X 10*3/uL Microbiology - Last 24 Hours (Table) 04/07/23 21:45 Gram Stain - Preliminary Appendix Wound Culture - Preliminary Gram Neg Bacilli Assessment and Plan (1) Acute appendicitis Current Visit: Yes Status: Acute Code(s): K35.80 - UNSPECIFIED ACUTE APPENDICITIS SNOMED Code(s): 02606861 (2) Peritonitis Current Visit: Yes Status: Acute Code(s): K65.9 - PERITONITIS, UNSPECIFIED SNOMED Code(s): 56070250 Plan: 1patient presented hospital with abdominal pain has been diagnosed with acute appendicitis with retrocecal perforation and localized peritonitis with abdominal cultures currently pending likely from enteric gram-negative both aerobes and anaerobes 2-slight worsening of the white count while on Unasyn with concern for possible Unasyn resistant pathogen 3-we will discontinue Unasyn 4-start the patient on Zosyn 3.375 g every 8 hours while waiting for the culture to finalize We will follow on clinical condition and cultures to further adjust medication if needed Thank you for this consultation we will follow the patient along with you Dictation was produced using [employer] dictation software. please excuse any grammatical, word or spelling errors. Time with Patient: Greater than 30
[2023-04-10 07:52] LABS: Basophils % (A) 0 %; Eosinophils # (A) 0.1 k/uL (0-0.7); Eosinophils % (A) 2 %; HCT 33.6 % (39.0-53.0); HGB 11.4 gm/dL (13.0-17.5); Lymphocytes # (A) 1.3 k/uL (1.0-4.8); Lymphocytes % (A) 20 %; MCHC 33.9 g/dL (31.0-37.0); MCV 94.3 fL (80.0-100.0); Mean Platelet Volume 9.9; Monocytes # (A) 0.5 k/uL (0-1.0); Monocytes % (A) 8 %; Neutrophils # (A) 4.6 k/uL (1.3-7.7); Neutrophils % (A) 69 %; Platelet Count 147 k/uL (150-450); RBC 3.57 m/uL (4.30-5.90); RDW 13.2 % (11.5-15.5); WBC 6.6 k/uL (3.8-10.6)
[2023-04-10] MEDS: PANTOPRAZOLE 40 MG/10 ML VIAL IV SCH (08:59)
[2023-04-10] MEDS: PIPERACILLIN-TAZOBACTAM 3.375 GM in SODIUM CHLORIDE 0.9% 100 ML IVPB SCH (09:00)
[2023-04-10] MEDS: DOCUSATE 100 MG CAP PO SCH ×2 (09:04→20:40)
[2023-04-10] MEDS: HEPARIN SODIUM,PORCINE 5,000 UNIT/ML 1 ML VIAL SQ SCH ×2 (09:05→20:40)
[2023-04-10] MEDS: ERTAPENEM 1 GM in SODIUM CHLORIDE 0.9% 50 ML IVPB SCH (10:52)
--- NOTE | 2023-04-10 13:22 | P.PN ---
Subjective Progress Note Date: 04/10/23 Principal diagnosis: Reason for follow-up is acute appendicitis with peritonitis, ESBL E coli Patient is a 73-year-old male with a past medical history significant for skin cancer and former smoker presenting to the hospital for evaluation of abdominal pain patient has been diagnosed with acute appendicitis concerning for retrocecal perforation and localized peritonitis status post laparoscopic appendectomy On today's evaluation that is 04/10/2023, the patient remains to be afebrile , the patient is breathing comfortably on room air and denies any shortness of b reath, the patient denies chest pain or cough , patient abdominal pain has decreased in intensity and denies any nausea/vomiting and no diarrhea has been reported . Patient white count normalized to 6.6 abdominal culture growing ESBL E. coli Objective - Vital Signs Vital signs: Vital Signs Temp 97.8 F 04/10/23 07:50 Pulse 62 04/10/23 07:50 Resp 17 04/10/23 07:50 BP 120/72 04/10/23 07:50 Pulse Ox 94 L 04/10/23 07:50 FiO2 Intake & Output 04/09/23 04/10/23 04/10/23 18:59 06:59 18:59 Intake Total 650 1400 420 Balance 650 1400 420 Intake: Intake, IV Titration 410 900 Amount Ampicillin-Sulbactam 3 gm 100 In Sodium Chloride 0.9% 100 ml @ 200 mls/hr IVPB Q8H DA Rx#:[id number] Piperacillin-Tazobactam 3 100 100 .375 gm In Sodium Chloride 0.9% 100 ml @ 25 mls/hr IVPB Q8HR DA Rx# :[id number] Sodium Chloride 0.9% 1, 10 600 000 ml @ 100 mls/hr IV . Q10H DA Rx#:[id number] metroNIDAZOLE-NS PMX 500 200 200 mg In Saline 1 100ml.bag @ 100 mls/hr IVPB Q6HR DA Rx#:[id number] Oral 240 500 420 Other: Voiding Method Toilet Urinal # Voids 1 - Exam GENERAL DESCRIPTION: An elderly male up in the chair in no distress RESPIRATORY SYSTEM: Unlabored breathing , clear to auscultation anteriorly HEART: S1 S2 regular rate and rhythm , ABDOMEN: Soft , mild tenderness EXTREMITIES: No edema feet - Labs CBC & Chem 7: 04/10/23 06:24 04/06/23 04:09 Labs: Abnormal Lab Results - Last 24 Hours (Table) 04/09/23 04/10/23 Range/Units 06:26 06:24 WBC 12.62 H (4.50-10.00) X 10*3/uL RBC 3.74 L 3.57 L (4.40-5.60) X 10*6/uL Hgb 11.3 L 11.4 L (13.0-17.0) g/dL Hct 34.4 L 33.6 L (39.6-50.0) % Plt Count 147 L (150-450) k/uL MPV 13.0 H (9.5-12.2) FL Neutrophils # 10.63 H (1.80-7.70) X 10*3/uL Eosinophils # 0 L (0.04-0.35) X 10*3/uL Microbiology - Last 24 Hours (Table) 04/07/23 21:45 Gram Stain - Final Appendix Wound Culture - Final Escherichia coli Assessment and Plan (1) Infection due to ESBL-producing Escherichia coli Current Visit: Yes Status: Acute Code(s): A49.8 - OTHER BACTERIAL INFECTIONS OF UNSPECIFIED SITE; Z16.12 - EXTENDED SPECTRUM BETA LACTAMASE (ESBL) RESISTANCE SNOMED Code(s): 901591305 (2) Acute appendicitis Current Visit: Yes Status: Acute Code(s): K35.80 - UNSPECIFIED ACUTE APPENDICITIS SNOMED Code(s): 80413687 (3) Peritonitis Current Visit: Yes Status: Acute Code(s): K65.9 - PERITONITIS, UNSPECIFIED SNOMED Code(s): 66085376 Plan: 1patient [facility] hospital with abdominal pain has been diagnosed with acute appendicitis with retrocecal perforation and localized peritonitis with abdominal cultures currently pending likely from enteric gram-negative both aerobes and anaerobes 2Abdominal cultures growing ESBL E. coli 3-we will discontinue Zosyn 4-start the patient on Invanz [address] the midline sample case porter to arrange for outpatient IV Invanz 12 days discussed with the nursing staff Dictation was produced using [employer] dictation software. please excuse any grammatical, word or spelling errors. Time with Patient: Less than 30
--- NOTE | 2023-04-10 15:01 | P.DS ---
Providers Date of admission: 04/06/23 08:29 Expected date of discharge: 04/10/23 Attending physician: Suzanne Solorio Consults: 04/06/23 12:46 Consult Physician Routine Consulting Provider: [facility] Consult Reason/Comments: Anesthesia Care Do you want consulting provider notified?: Yes 04/06/23 13:05 Consult Physician Urgent Consulting Provider: Andres Ritchie Consult Reason/Comments: Abnormal EKG, new, needs cardiac risk assessment Do you want consulting provider notified?: Yes 04/09/23 14:05 Consult Physician Routine Consulting Provider: Mare Bourne Consult Reason/Comments: Leukocytosis Do you want consulting provider notified?: Yes Primary care physician: Stated None Hospital Course: Discharge diagnosis 1. Acute appendicitis, retrocecal with rupture, localized peritonitis 2. 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 Patient is status post robotic-assisted laparoscopic appendectomy for acute appendicitis, retrocecal with rupture. Culture had grown ESBL E. coli. Patient seen by infectious disease they have adjusted antibiotics and recommend IV Invanz for 12 days at discharge. Patient's pain is controlled. He is afebrile. He is tolerating diet. His white count has normalized. He is having bowel movements. He has been up and ambulating. Denies any difficulty urinating. Patient is stable for discharge once IV antibiotics are arranged outpatient. 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 Signing provider agrees with the documented findings, assessment, and plan of care. Patient Condition at Discharge: Stable Plan - Discharge Summary Discharge Rx Participant: No New Discharge Prescriptions: New Ibuprofen [Motrin] 600 mg PO Q8HR PRN #30 tab PRN Reason: Pain Acetaminophen Tab [Tylenol] 1,000 mg PO Q6HR PRN #30 tablet PRN Reason: Pain Discharge Medication List Acetaminophen Tab [Tylenol] 1,000 mg PO Q6HR PRN #30 tablet 04/10/23 [Rx] Ibuprofen [Motrin] 600 mg PO Q8HR PRN #30 tab 04/10/23 [Rx] Follow up Appointment(s)/Referral(s): None,Stated [Primary Care Provider] - 1-2 days Steffen,Sajjad, MD [STAFF PHYSICIAN] - 1 Week Activity/Diet/Wound Care/Special Instructions: PCP: DR GREENWOOD - [id number], [place] [id number] - Invanz 1 gram IV daily x 12 days Discharge Disposition: HOME WITH HOME HEALTH SERVICES
[2023-04-10] MEDS: ACETAMINOPHEN TAB 500 MG TAB PO SCH ×2 (17:23→23:44)
[2023-04-11] MEDS: ACETAMINOPHEN TAB 500 MG TAB PO SCH ×2 (05:49→12:53)
[2023-04-11] MEDS: KETOROLAC 15 MG/ML 1 ML VIAL IVP SCH ×2 (05:49→12:52)
[2023-04-11 07:50] VITALS: BMI 24.3
[2023-04-11 07:51] VITALS: TEMP 97.9
[2023-04-11] MEDS: PANTOPRAZOLE 40 MG/10 ML VIAL IV SCH (08:41)
[2023-04-11] MEDS: ERTAPENEM 1 GM in SODIUM CHLORIDE 0.9% 50 ML IVPB SCH (08:41)
[2023-04-11] MEDS: DOCUSATE 100 MG CAP PO SCH (08:41)
[2023-04-11] MEDS: HEPARIN SODIUM,PORCINE 5,000 UNIT/ML 1 ML VIAL SQ SCH (08:41)
[2023-04-11] MEDS: SODIUM CHLORIDE 0.9% 1,000 ML IV SCH (11:47)
[2023-04-11 11:48] VITALS: BP 127/70; PULSE 60; RESP 16
[2023-04-11] MEDS ORDERED: FUROSEMIDE 10 MG/ML 2 ML VIAL IV ONE (12:12)
--- NOTE | 2023-04-11 13:14 | P.PN ---
Subjective Progress Note Date: 04/11/23 Principal diagnosis: Reason for follow-up is acute appendicitis with peritonitis, ESBL E coli Patient is a 73-year-old male with a past medical history significant for skin cancer and former smoker presenting to the hospital for evaluation of abdominal pain patient has been diagnosed with acute appendicitis concerning for retrocecal perforation and localized peritonitis status post laparoscopic appendectomy On today's evaluation that is 04/11/2023, the patient denies any fever or chills, the patient is breathing comfortably on room air and no need for any supplemental oxygen the patient denies chest pain shortness of breath or cough , patient complaining of some bloating but no vomiting no abdominal pain no diarrhea Patient white count normalized to 6.6 as of 04/10/2023 no CBC was done today abdominal culture growing ESBL E. coli Objective - Vital Signs Vital signs: Vital Signs Temp 97.9 F 04/11/23 07:15 Pulse 75 04/11/23 07:15 Resp 18 04/11/23 07:15 BP 128/75 04/11/23 07:15 Pulse Ox 93 L 04/11/23 07:15 FiO2 Intake & Output 04/10/23 04/11/23 04/11/23 18:59 06:59 18:59 Intake Total 660 800 Balance 660 800 Weight 77.111 kg Intake: Oral 660 800 Other: Voiding Method Toilet Toilet Toilet Urinal Urinal Urinal # Voids 3 2 - Exam GENERAL DESCRIPTION: An elderly male up in the chair in no distress RESPIRATORY SYSTEM: Unlabored breathing , clear to auscultation anteriorly HEART: S1 S2 regular rate and rhythm , ABDOMEN: Soft , mild tenderness EXTREMITIES: No edema feet - Labs CBC & Chem 7: 04/10/23 06:24 04/06/23 04:09 Labs: Microbiology - Last 24 Hours (Table) 04/07/23 21:45 Gram Stain - Final Appendix Wound Culture - Final Escherichia coli Assessment and Plan (1) Infection due to ESBL-producing Escherichia coli Current Visit: Yes Status: Acute Code(s): A49.8 - OTHER BACTERIAL INFECTIONS OF UNSPECIFIED SITE; Z16.12 - EXTENDED SPECTRUM BETA LACTAMASE (ESBL) RESISTANCE SNOMED Code(s): 429048718 (2) Acute appendicitis Current Visit: Yes Status: Acute Code(s): K35.80 - UNSPECIFIED ACUTE APPENDICITIS SNOMED Code(s): 19190844 (3) Peritonitis Current Visit: Yes Status: Acute Code(s): K65.9 - PERITONITIS, UNSPECIFIED SNOMED Code(s): 68211019 Plan: 1patient presented hospital with abdominal pain has been diagnosed with acute appendicitis with retrocecal perforation and localized peritonitis with abdominal cultures currently pending likely from enteric gram-negative both aerobes and anaerobes 2Abdominal cultures growing ESBL E. coli 3-patient did get the midline he will continue with Invanz 1 g daily for another 12 days on discharge and close outpatient follow-up Dictation was produced using [employer]fred dictation software. please excuse any grammatical, word or spelling errors. Time with Patient: Less than 30
== END 2023-04-11 14:30 | disposition home health service (06) | DRG 398 ==
LOC: EC 02:51 → 5NMEDONC 08:29
PROVIDERS: ADMIT Surgery Plastic and Reconstructive Surgery; ATTEND Surgery Plastic and Reconstructive Surgery
PROC: 8E0W3CZ Robotic Assisted Procedure of Trunk Region, Percutaneous Approach (ICD-10-PCS; 2023-04-07)
PROC: 0DTJ4ZZ Resection of Appendix, Percutaneous Endoscopic Approach (ICD-10-PCS; principal; 2023-04-07 20:31)
DX: K35.33 Acute appendicitis with perforation, localized peritonitis, and gangrene, with abscess (principal); Z16.12 Extended spectrum beta lactamase (ESBL) resistance; B96.20 Unspecified Escherichia coli [E. coli] as the cause of diseases classified elsewhere; R60.0 Localized edema; I44.60 Unspecified fascicular block; Z20.822 Contact with and (suspected) exposure to COVID-19; Z87.891 Personal history of nicotine dependence; Z28.310 Unvaccinated for COVID-19; Z85.828 Personal history of other malignant neoplasm of skin
CPT/HCPCS: 36410; 36415; 74177; 76937; 80053; 81003; 82150; 83605; 83690; 85025; 87070; 87075; 87077; 87186; 87205; 87635; 88304; 93005; 93306; 96361; 96374; 96375; 96376; 99285